=== PATIENT | male | born 1950 | race African-American/Black ===

== ENCOUNTER 2023-10-14 14:35 | Inpatient (IN) | payer OTHER ==
[2023-10-14] MEDS ORDERED: ACETAMINOPHEN 1000 MG/100 ML BAG IVPB ONE ×2 (15:12→21:06)
[2023-10-14] MEDS ORDERED: ACETAMINOPHEN INJECTION 100 ML IVPB ONE ×2 (15:30→21:06)
[2023-10-14 15:54] LABS: BASO % 0.3 % (0-2.0); HEMATOCRIT 43.7 % (35.4-49); HEMOGLOBIN 14.7 GM/dL (11.7-16.9); LYMPH % 11.7 % (8-40); MCH 31.4 pg (25.7-33.7); MCHC 33.7 g/dl (32.0-35.9); MEAN CELL VOLUME 93.2 fl (80-96); MEAN PLT VOLUME 9.1 fl (7.5-11.1); PLATELET COUNT 219 10^3/uL (134-434); RBC 4.69 M/mm3 (4.00-5.60); RDW 12.9 % (11.9-15.9); WHITE BLOOD COUNT 7.7 K/mm3 (4.0-10.0)
[2023-10-14 16:00] LABS: VENOUS BASE EXCESS -1.7 mmol/L (-2-2); VENOUS PCO2 40.1 mmHg (38-52); VENOUS PH 7.381 (7.310-7.410)
[2023-10-14 16:03] LABS: INR 1.24 (0.83-1.09); PROTHROMBIN TIME (PATIENT) 14.4 SEC (9.7-13.0)
[2023-10-14 16:06] LABS: ACTIVATED PTT 36.2 SECONDS (25.2-36.5)
[2023-10-14 16:14] LABS: POTASSIUM 4.4 mmol/L (3.5-5.1)
[2023-10-14 16:16] LABS: CALCIUM 8.9 mg/dL (8.5-10.1)
[2023-10-14 16:17] LABS: ALBUMIN 3.7 g/dl (3.4-5.0); BLOOD UREA NITROGEN 21.6 mg/dL (7-18)
[2023-10-14 16:20] LABS: CREATININE 1.6 mg/dL (0.55-1.3)
[2023-10-14 16:21] LABS: BILIRUBIN,TOTAL 0.5 mg/dL (0.2-1); TOT PROT 7.7 g/dl (6.4-8.2)
[2023-10-14 16:41] LABS: EPI CELLS 18 /uL (0-25.1); HYALINE CASTS 2 /uL (0-3.1); PH,URINE 5.5 (5.0-8.0); URINE APPEARANCE CLOUDY; URINE BACTERIA 16 /uL (0-1359); URINE BILIRUBIN NEGATIVE (NEGATIVE); URINE COLOR YELLOW; URINE GLUCOSE (UA) NEGATIVE (NEGATIVE); URINE KETONE TRACE (NEGATIVE); URINE LEUK ESTERASE TRACE (NEGATIVE); URINE NITRITE NEGATIVE (NEGATIVE); URINE PROTEIN 2+ (NEGATIVE); URINE RBC 56 /uL (0-23.9); URINE UROBILINOGEN 0.2 mg/dL (0.2-1.0); URINE WBC 36 /uL (0-25.8)
[2023-10-14] MEDS ORDERED: CEFTRIAXONE 1 GM in DEXTROSE 5%-WATER - 50 ML IVPB ONE (16:50)
[2023-10-14] MEDS ORDERED: AZITHROMYCIN IVPB 500 MG in DEXTROSE 5%-WATER - 250 ML IVPB ONE (16:50)
[2023-10-14] MEDS ORDERED: AZITHROMYCIN IVPB 500 MG/250 ML BAG IVPB ONE (16:54)
[2023-10-14] MEDS ORDERED: CEFTRIAXONE 1 GM/50 ML BAG ONE (17:50)
[2023-10-14] MEDS ORDERED: IBUPROFEN 400 MG TABLET (FP) PO ONE ×2 (19:25→19:28)
[2023-10-14] MEDS ORDERED: SODIUM CHLORIDE 500 ML IV STA (21:08)
[2023-10-14] MEDS: HEPARIN NA (PORCINE) 5,000 UNITS/ML 1ML VIAL SQ SCH (23:24)
[2023-10-14] MEDS: SODIUM CHLORIDE 1,000 ML IV SCH (23:35)
[2023-10-15] MEDS: HEPARIN NA (PORCINE) 5,000 UNITS/ML 1ML VIAL SQ SCH ×3 (07:06→21:22)
[2023-10-15 08:43] LABS: POTASSIUM 4.3 mmol/L (3.5-5.1)
[2023-10-15 08:45] LABS: ALBUMIN 3.2 g/dl (3.4-5.0); BLOOD UREA NITROGEN 22.9 mg/dL (7-18); CALCIUM 8.6 mg/dL (8.5-10.1); MAGNESIUM 2.2 mg/dL (1.8-2.4)
[2023-10-15 08:47] LABS: CHOLESTEROL 195 mg/dL (50-200)
[2023-10-15 08:48] LABS: CREATININE 1.7 mg/dL (0.55-1.3); LDL CHOLESTEROL (ONLY SJRH) 115 mg/dL (5-100); PHOSPHOROUS 2.3 mg/dL (2.5-4.9)
[2023-10-15 08:50] LABS: BILIRUBIN,TOTAL 0.8 mg/dL (0.2-1); HDL CHOLESTEROL 61 mg/dL (40-60); TOT PROT 6.9 g/dl (6.4-8.2)
[2023-10-15 08:54] LABS: BASO % 0.2 % (0-2.0); HEMATOCRIT 43.3 % (35.4-49); HEMOGLOBIN 14.3 GM/dL (11.7-16.9); LYMPH % 8.2 % (8-40); MCH 31.1 pg (25.7-33.7); MCHC 33.1 g/dl (32.0-35.9); MONO % 12.8 % (3.8-10.2); NEUT % 78.8 % (42.8-82.8); PLATELET COUNT 198 10^3/uL (134-434); RDW 13.3 % (11.9-15.9); WHITE BLOOD COUNT 11.6 K/mm3 (4.0-10.0)
[2023-10-15] MEDS: CEFTRIAXONE 1 GM in DEXTROSE 5%-WATER - 50 ML IVPB SCH (09:23)
[2023-10-15] MEDS: AZITHROMYCIN IVPB 500 MG/250 ML BAG IVPB SCH (09:23)
[2023-10-15] MEDS: ACETAMINOPHEN 325 MG TABLET (FP) PO PRN ×2 (10:05→21:22)
[2023-10-15] MEDS: SODIUM CHLORIDE 1,000 ML IV SCH (14:35)
[2023-10-16] MEDS: HEPARIN NA (PORCINE) 5,000 UNITS/ML 1ML VIAL SQ SCH (05:17)
[2023-10-16] MEDS: AZITHROMYCIN IVPB 500 MG/250 ML BAG IVPB SCH (09:40)
[2023-10-16] MEDS: CEFTRIAXONE 1 GM in DEXTROSE 5%-WATER - 50 ML IVPB SCH (10:56)
[2023-10-16 11:02] LABS: BASO % 0.6 % (0-2.0); EOS % 0.4 % (0-4.5); HEMATOCRIT 38.4 % (35.4-49); HEMOGLOBIN 12.6 GM/dL (11.7-16.9); LYMPH % 20.7 % (8-40); MCH 30.8 pg (25.7-33.7); MCHC 32.8 g/dl (32.0-35.9); MEAN CELL VOLUME 93.9 fl (80-96); MEAN PLT VOLUME 9.2 fl (7.5-11.1); NEUT % 60.3 % (42.8-82.8); PLATELET COUNT 189 10^3/uL (134-434); RBC 4.09 M/mm3 (4.00-5.60); RDW 13.1 % (11.9-15.9); WHITE BLOOD COUNT 7.6 K/mm3 (4.0-10.0)
[2023-10-16 11:09] LABS: POTASSIUM 3.8 mmol/L (3.5-5.1)
[2023-10-16 11:11] LABS: CALCIUM 7.8 mg/dL (8.5-10.1)
[2023-10-16 11:12] LABS: ALBUMIN 2.6 g/dl (3.4-5.0); BLOOD UREA NITROGEN 14.1 mg/dL (7-18)
[2023-10-16 11:15] LABS: CREATININE 1.2 mg/dL (0.55-1.3)
[2023-10-16 11:17] LABS: BILIRUBIN,TOTAL 0.6 mg/dL (0.2-1); TOT PROT 6.1 g/dl (6.4-8.2)
[2023-10-16 14:56] VITALS: BMI 33.5
[2023-10-16 16:18] LABS: COCAINE, UR NEGATIVE (NEGATIVE); OPIATES, URI NEGATIVE (NEGATIVE); URINE BARBITURATES NEGATIVE (NEGATIVE)
[2023-10-16 16:19] LABS: METHADONE, UR NEGATIVE (NEGATIVE); PHENCYCLIDINE,URINE NEGATIVE (NEGATIVE)
[2023-10-16 16:23] LABS: URINE AMPHETAMINES NEGATIVE (NEGATIVE); URINE BENZODIAZEPINES NEGATIVE (NEGATIVE)
[2023-10-16] MEDS: CEFTRIAXONE 2 GM in DEXTROSE 5%-WATER 100 ML IVPB SCH (16:47)
[2023-10-16] MEDS: SODIUM CHLORIDE 1,000 ML IV SCH (16:48)
[2023-10-16] MEDS: VANCOMYCIN/WATER 1250 MG 1,250 MG/250 ML BAG IVPB SCH (17:31)
[2023-10-16] MEDS: Acyclovir Sodium 800 MG in DEXTROSE 5%-WATER - 250 ML IVPB SCH (18:49)
[2023-10-17] MEDS: Acyclovir Sodium 800 MG in DEXTROSE 5%-WATER - 250 ML IVPB SCH ×3 (03:26→19:55)
[2023-10-17] MEDS: SODIUM CHLORIDE 1,000 ML IV SCH ×2 (07:33→19:55)
[2023-10-17 09:58] LABS: POTASSIUM 3.9 mmol/L (3.5-5.1)
[2023-10-17 10:07] LABS: BLOOD UREA NITROGEN 10.5 mg/dL (7-18)
[2023-10-17 10:08] LABS: ALBUMIN 2.7 g/dl (3.4-5.0); CALCIUM 8.2 mg/dL (8.5-10.1)
[2023-10-17 10:09] LABS: MAGNESIUM 2.1 mg/dL (1.8-2.4)
[2023-10-17 10:11] LABS: PHOSPHOROUS 2.8 mg/dL (2.5-4.9)
[2023-10-17 10:12] LABS: CREATININE 1.2 mg/dL (0.55-1.3)
[2023-10-17 10:13] LABS: BILIRUBIN,TOTAL 0.4 mg/dL (0.2-1); TOT PROT 6.2 g/dl (6.4-8.2)
[2023-10-17 10:15] LABS: BASO % 1.1 % (0-2.0); EOS % 1.9 % (0-4.5); HEMATOCRIT 37.1 % (35.4-49); HEMOGLOBIN 12.3 GM/dL (11.7-16.9); LYMPH % 32.2 % (8-40); MCH 31.2 pg (25.7-33.7); MCHC 33.2 g/dl (32.0-35.9); MEAN CELL VOLUME 93.9 fl (80-96); MEAN PLT VOLUME 9.1 fl (7.5-11.1); NEUT % 50.8 % (42.8-82.8); PLATELET COUNT 204 10^3/uL (134-434); RBC 3.95 M/mm3 (4.00-5.60); RDW 13.2 % (11.9-15.9); WHITE BLOOD COUNT 4.4 K/mm3 (4.0-10.0)
[2023-10-17] MEDS: CEFTRIAXONE 2 GM in DEXTROSE 5%-WATER 100 ML IVPB SCH (11:57)
[2023-10-17 12:58] LABS: BF GLUCOSE (CSF ONLY) 67 mg/dL (40-70)
[2023-10-17 13:28] LABS: CSF APPEARANCE CLEAR (CLEAR); CSF COLOR COLORLESS (COLORLESS); CSF WBC 0 mm3 (0-5)
[2023-10-17] MEDS: VANCOMYCIN/WATER 1250 MG 1,250 MG/250 ML BAG IVPB SCH (15:34)
[2023-10-17 20:56] VITALS: RESP 18
[2023-10-18] MEDS: Acyclovir Sodium 800 MG in DEXTROSE 5%-WATER - 250 ML IVPB SCH ×2 (03:11→10:29)
[2023-10-18] MEDS: CEFTRIAXONE 2 GM in DEXTROSE 5%-WATER 100 ML IVPB SCH (10:28)
[2023-10-18 10:30] LABS: BASO % 1.2 % (0-2.0); EOS % 3.7 % (0-4.5); HEMATOCRIT 38.9 % (35.4-49); HEMOGLOBIN 12.9 GM/dL (11.7-16.9); LYMPH % 36.2 % (8-40); MCH 31.2 pg (25.7-33.7); MCHC 33.2 g/dl (32.0-35.9); MEAN PLT VOLUME 8.9 fl (7.5-11.1); MONO % 7.5 % (3.8-10.2); NEUT % 51.4 % (42.8-82.8); PLATELET COUNT 230 10^3/uL (134-434); RBC 4.14 M/mm3 (4.00-5.60)
[2023-10-18 11:13] LABS: POTASSIUM 3.9 mmol/L (3.5-5.1)
[2023-10-18 11:18] LABS: ALBUMIN 2.8 g/dl (3.4-5.0); BLOOD UREA NITROGEN 8.3 mg/dL (7-18); CALCIUM 9.1 mg/dL (8.5-10.1)
[2023-10-18 11:21] LABS: CREATININE 1.2 mg/dL (0.55-1.3)
[2023-10-18 11:23] LABS: TOT PROT 6.4 g/dl (6.4-8.2)
[2023-10-18 11:26] LABS: BILIRUBIN,TOTAL 0.4 mg/dL (0.2-1)
[2023-10-18 16:16] VITALS: BP 149/89; PULSE 72; TEMP 98.4
== END 2023-10-18 16:33 | disposition home or self-care (01) | DRG 720 ==
LOC: JER 14:35 → JERBED 19:25 → J8W 22:09 → J5S 10-15 12:12
PROVIDERS: ADMIT Internal Medicine; ATTEND Internal Medicine
PROC: 009U3ZZ Drainage of Spinal Canal, Percutaneous Approach (ICD-10-PCS; principal; 2023-10-17)
DX: A41.9 Sepsis, unspecified organism (principal); R41.82 Altered mental status, unspecified; N17.9 Acute kidney failure, unspecified; G92.8 Other toxic encephalopathy; J18.9 Pneumonia, unspecified organism; J90 Pleural effusion, not elsewhere classified; M62.82 Rhabdomyolysis; N18.9 Chronic kidney disease, unspecified
CPT/HCPCS: 0241U-QW; 36415; 62272; 70450-TC; 71045-TC-FY; 71250-TC; 74018-TC-FY; 76775-TC; 80053; 80061; 80307; 81003; 82043; 82550; 82553; 82570; 82607; 82746; 82803; 82945; 83605; 83735; 84100; 84156; 84157; 84443; 84484; 85025; 85610; 85730; 86644; 86850; 86900; 86901; 87040; 87070; 87086; 87205; 87635; 87799; 93005; 93010; 93306-TC; 93880-TC; 99285-25; J1644